=== PATIENT | female | born 1970 | race Caucasian/White ===

== ENCOUNTER 2019-04-21 06:35 | Emergency (ER) | payer OTHER ==
[2019-04-21] MEDS ORDERED: ONDANSETRON HCL INJ/PF 4 MG/2 ML SDV IV ONE (07:19)
[2019-04-21] MEDS ORDERED: NORMAL SALINE 1000 ML 1,000 ML IV ONE (07:19)
[2019-04-21] MEDS ORDERED: MECLIZINE HCL 25 MG TABLET PO ONE (07:19)
--- NOTE | 2019-04-21 07:53 | ER Document Report ---
ED General - General Chief Complaint: Vertigo Stated Complaint: DIZZINESS Time Seen by Provider: 04/21/19 07:07 Primary Care Provider: ANA JARVIS MD [COMMUNITY BASED STAFF] - Follow up as needed (local primary care. ) Notes: Patient is a 48-year-old female that presents to the emergency department for chief complaint of vertigo. Patient states that she turned quickly in bed this morning, and went to stand up, and felt dizzy, had some room spinning, nausea without vomiting. She states that she felt off balance, she thinks she is been dehydrated, she had decreased oral intake yesterday, because she is been dealing with chronic diarrhea for about a month, and had to go on a trip so she did not want to have diarrhea during her drive. She states she has had a history of vertigo, and it seems to be worse when she is even mildly dehydrated. That is her main concern. She denies having any headache, blurred vision or loss of vision, denies any numbness, weakness, tingling or slurred speech. At this time she states she feels a little bit better but still having some mild room spinning, and nausea. No other complaints at this time. Past Medical History: Vertigo, chronic diarrhea Past Surgical History: Cholecystectomy Social History: Denies tobacco, alcohol or drug use. Family History: Reviewed and noncontributory for presenting illness Allergies: Reviewed, see documented allergy list. REVIEW OF SYSTEMS: Other than noted above, the 12 point review of systems was reviewed with the patient and were negative, all pertinent findings are included in the HPI. PHYSICAL EXAMINATION: Vital signs reviewed, nursing noted reviewed. GENERAL: Well-appearing, well-nourished and in no acute distress. HEAD: Atraumatic, normocephalic. EYES: extraocular movements intact, sclera anicteric, conjunctiva are normal. PERRLA, left horizontal gaze nystagmus. ENT: nares patent, oropharynx clear without exudates. Moist mucous membranes. NECK: Normal range of motion, supple without lymphadenopathy LUNGS: Breath sounds clear to auscultation bilaterally and equal. No wheezes rales or rhonchi. HEART: Regular rate and rhythm without murmurs ABDOMEN: Soft, nontender, normoactive bowel sounds. No rebound, guarding, or rigidity. No masses appreciated. EXTREMITIES: Nontender, good range of motion, no pitting or edema. NEUROLOGICAL: No focal neurological deficits. Moves all extremities spontaneou sly Motor and sensory grossly intact on exam. Normal yatecn-foka-bforji testing, normal heel mccall testing. PSYCH: Normal mood, normal affect. SKIN: Warm, Dry, normal turgor, no rashes or lesions noted on exposed skin TRAVEL OUTSIDE OF THE [place] IN LAST 30 DAYS: No - Related Data Allergies/Adverse Reactions: No Known Allergies Allergy (Verified 04/21/19 06:57) Past Medical History - Social History Smoking Status: Never Smoker Chew tobacco use (# tins/day): No Frequency of alcohol use: None Drug Abuse: None Family History: Reviewed & Not Pertinent Patient has suicidal ideation: No Patient has homicidal ideation: No Renal/ Medical History: Denies: Hx Peritoneal Dialysis Past Surgical History: Reports: Hx Appendectomy, Hx Cholecystectomy Physical Exam - Vital signs Vitals: Temp Pulse Resp BP Pulse Ox 97.4 F 72 16 117/55 L 98 04/21/19 06:42 04/21/19 06:42 04/21/19 06:42 04/21/19 06:42 04/21/19 06:42 Course - Re-evaluation Re-evalutation: Patient seen and examined vital signs reviewed. Laboratory data and/or imaging were ordered as appropriate for the patient's presenting symptoms and complaint, with consideration of any critical or life threatening conditions that may be associated with their obtained history and exam as noted above. Patient was treated with IV fluids, Zofran and p.o. meclizine Results were reviewed when available and demonstrated normal CBC, and BMP, and unremarkable EKG as noted The patient was re-evaluated and was stable, symptoms had essentially completely resolved, and she was feeling much better. Evaluation was most consistent with dizziness, likely benign paroxysmal positional vertigo, mild dehydration, patient was much improved, feels she can be discharged home at this time, with a prescription for meclizine and to follow-up with the primary care. Results were discussed with the patient at this point, after careful consideration I feel that that patient can be discharged from the emergency department, the patient was educated treatments and reasons to return to the emergency department based on their presumed diagnosis as noted above, they were advised to followup with a primary care physician in 2-3 days. Patient was agreeable to plan of care. *Note is created using voice recognition software and may contain spelling, syntax or grammatical errors. Laboratory 04/21/19 04/21/19 07:35 07:35 WBC 4.9 RBC 4.19 Hgb 12.2 Hct 36.2 MCV 87 MCH 29.1 MCHC 33.6 RDW 12.9 Plt Count 241 Seg Neutrophils % 69.0 Lymphocytes % 21.1 Monocytes % 8.6 Eosinophils % 1.1 Basophils % 0.2 Absolute Neutrophils 3.4 Absolute Lymphocytes 1.0 Absolute Monocytes 0.4 Absolute Eosinophils 0.1 Absolute Basophils 0.0 Sodium 137.5 Potassium 3.8 Chloride 104 Carbon Dioxide 22 Anion Gap 12 BUN 13 Creatinine 0.64 Est GFR ( Amer) > 60 Est GFR (Non-Af Amer) > 60 Glucose 91 Calcium 9.1 - Vital Signs Vital signs: Temp Pulse Resp BP Pulse Ox 97.4 F 72 14 112/58 L 100 04/21/19 06:42 04/21/19 06:42 04/21/19 08:01 04/21/19 08:01 04/21/19 08:01 - Laboratory Result Diagrams: 04/21/19 07:35 04/21/19 07:35 - EKG Interpretation by Me Additional EKG results interpreted by me: EKG demonstrates sinus rhythm with a ventricular rate of 64 bpm, normal axis, normal intervals, no ST elevation, no prior for comparison. Discharge - Discharge Clinical Impression: Dizziness Condition: Stable Disposition: HOME, SELF-CARE Instructions: Vertigo (OM) Additional Instructions: Please take the prescribed meclizine, twice daily for the next 2 days, I recommend that you sleep at about a 45 degree angle over the next 5 days, to help minimize your symptoms. If things worsen, or you have difficulty walking to the point the medication is not helping, do not hesitate to return to the emergency department. Prescriptions: Meclizine HCl [Motion Relief] 25 mg PO Q8H PRN #15 tablet PRN Reason: Dizziness Referrals: ANA JARVIS MD [COMMUNITY BASED STAFF] - Follow up as needed (local primary care. )
[2019-04-21 07:55] LABS: ABSOLUTE EOSINOPHILS # (AUTO) 0.1 10^3/uL (0.0-0.6); ABSOLUTE MONOCYTES (AUTO) 0.4 10^3/uL (0.1-1.4); ABSOLUTE NEUT (AUTO) 3.4 10^3/uL (1.7-8.2); BASOPHILS % (AUTO) 0.2 % (0-2); EOSINOPHILS % (AUTO) 1.1 % (0-6); HEMATOCRIT 36.2 % (36.0-47.0); HEMOGLOBIN 12.2 g/dL (12.0-15.5); LYMPHOCYTES % (AUTO) 21.1 % (13-45); MEAN CORPUSCULAR HEMOGLOBIN 29.1 pg (27.0-33.4); MEAN CORPUSCULAR HGB CONC 33.6 g/dL (32.0-36.0); MEAN CORPUSCULAR VOLUME 87 fl (80-97); MONOCYTES % (AUTO) 8.6 % (3-13); PLATELET COUNT 241 10^3/uL (150-450); RED BLOOD COUNT 4.19 10^6/uL (3.72-5.28); RED CELL DISTRIBUTION WIDTH 12.9 % (11.5-14.0); TOTAL CELLS COUNTED % (AUTO) 100 %; WHITE BLOOD COUNT 4.9 10^3/uL (4.0-10.5)
[2019-04-21 08:14] LABS: ANION GAP 12 (5-19); BLOOD UREA NITROGEN 13 mg/dL (7-20); CALCIUM 9.1 mg/dL (8.4-10.2); CARBON DIOXIDE 22 mmol/L (22-30); CHLORIDE 104 mmol/L (98-107); GLUCOSE 91 mg/dL (75-110); POTASSIUM 3.8 mmol/L (3.6-5.0); SODIUM 137.5 mmol/L (137-145)
[2019-04-21 08:25] VITALS: BP 112/58
--- NOTE | 2019-04-23 18:36 | EKG REPORT ---
SEVERITY:- NORMAL ECG - SINUS RHYTHM : Confirmed by: Al Nagy MD 23-Apr-2019 18:35:28
== END 2019-04-21 08:46 | disposition home or self-care (01) ==
LOC: ER 06:35
DX: R42 Dizziness and giddiness (principal); R11.0 Nausea; R19.7 Diarrhea, unspecified; Z90.49 Acquired absence of other specified parts of digestive tract
CPT/HCPCS: 93005; 99283; 36415; 85025; 80048; 93010; J2405; J7030